=== PATIENT | male | born 2005 | race Caucasian/White ===

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

== ENCOUNTER 2023-12-11 12:20 | Emergency (ER) | payer SELFPAY ==
--- NOTE | 2023-12-11 12:27 | XR_ITS ---
PROCEDURE INFORMATION: Exam: XR Right Foot Exam date and time: 12/11/2023 12:28 PM Age: 18 years old Clinical indication: Injury or trauma; Fall; Swelling (edema); Ankle and foot; Right; Additional info: Injury at work, , swelling TECHNIQUE: Imaging protocol: Radiologic exam of the right foot. Views: 3 or more views. COMPARISON: No relevant prior studies available. FINDINGS: Bones/joints: No evidence of acute fracture or malalignment. Lisfranc joint appears normal. Soft tissues: Unremarkable. IMPRESSION: No evidence of acute osseous abnormality in the right foot.
--- NOTE | 2023-12-11 12:28 | XR_ITS ---
PROCEDURE INFORMATION: Exam: XR Right Ankle Exam date and time: 12/11/2023 12:30 PM Age: 18 years old Clinical indication: Injury or trauma; Fall; Work related; Swelling (edema); Ankle; Right; Additional info: Workers comp injury, , twisted ankle TECHNIQUE: Imaging protocol: Radiologic exam of the right ankle. Views: 3 or more views. COMPARISON: CR XR FOOT RT MIN 3V 12/11/2023 12:28 PM FINDINGS: Bones/joints: No evidence of acute fracture or malalignment. Ankle mortise appears intact. Soft tissues: Soft tissue edema noted. IMPRESSION: No evidence of acute osseous abnormality in the right ankle.
[2023-12-11 12:45] VITALS: BP 149/93; PULSE 86; RESP 18; TEMP 37.4; O2SAT 99; BMI 27.0
--- NOTE | 2023-12-11 13:16 | EXP.UTC ---
Discharge Plan Disposition Patient Disposition: Home, Self-Care Condition: Good Referrals Follow up/Referrals: Daniel Plunkett DO [Staff Physician] - See instructions Lynn Chung APRN [Primary Care Provider] - See instructions Roxie Krueger DPM [Staff Physician] - See instructions Activity Restrictions/Add. Instructions Additional Instructions/Restrictions: *weight bearing as tolerated *RICE, Rest the extremity, Ice 15-20 minutes 3-4 times daily, Compress- wear the spencer wrap as discussed as much as possible to help reduce swelling and pain, Elevate the extremity when at rest *Spencer wrap is for support and help control swelling, use it except in the shower. Be sure that is not to tight but not to loose either *Elevate when resting? *Ibuprofen 600-800mg every 6-8 hours as needed for pain an inflammation. If need something more can take Tylenol in between doses of Ibuprofen to help Immediately follow up with your family doctor for new or worsening of symptoms, or no noticeable improvement over the next 3-5 days Follow up with Orthopedics or Podiatry if no improvement or any worsening of symptoms Clinical Impressions Clinical Impression: Ankle sprain Qualifiers: Encounter type: initial encounter Involved ligament of ankle: unspecified ligament Laterality: right Qualified Code(s): S93.401A - Sprain of unspecified ligament of right ankle, initial encounter Instructions Patient Instructions: How to Use Crutches, How To Perform RICE (Rest, Ice, Compress, Elevate), How to Use a Walking Boot Print Language Print Language: Chadian Discharge ED Provider: Lizette Hyatt [facility] General Stated complaint: WC-12/11/23 0815- Pain in R ankle Mode of Arrival: Ambulatory Source of Information: Patient Limitations: No Limitations Time Seen by Provider: 12/11/23 13:16 Description of Symptoms (Recalled from Triage Doc. by RN): PATIENT C/O INJURY TO RIGHT ANKLE AFTER STEPPING OFF OF A LADDER AND TWISTING IT TODAY HEENT Symptoms (Recalled from RN notes): No Resp Symptoms (Recalled from RN notes): No Skin Symptoms (Recalled from RN notes): No MS Symptoms (Recalled from RN notes): Yes Functional Status (Recalled from RN notes): WNL History of Present Illness Provider Complaint: Patient states that he was at work and was stepping off ladder when he twisted his right ankle and foot States since twisting the ankle/foot he has been having pain so they brought him in to get him checked Denies any other injury Related Data Allergies Allergy/AdvReac Type Severity Reaction Status Date / Time No Known Allergies Allergy Verified 12/11/23 13:12 Worker's Comp Is this a Worker's Comp case?: No [facility] Disclaimer: The information contained in this section may have been updated after the patient was seen, as this information can be updated by other users. Surgical History (Updated 12/11/23 @ 13:12 by Nvein Henry RN) History of tonsillectomy Social History Smoking Status: Unknown if ever smoked alcohol intake: never current occupational status: unemployed Travel in the last 8 weeks: None ROS Obtained: Yes All systems reviewed & no additional complaints except as documented and Yes Systems reviewed as appropriate & no additional complaints except as documented Constitutional Constitutional: Reports system reviewed and no additional complaints, except as documented and Reports as per HPI Cardiovascular Cardiovascular: Reports system reviewed and no additional complaints, except as documented and Reports as per HPI Respiratory Respiratory: Reports system reviewed and no additional complaints, except as documented and Reports as per HPI Gastrointestinal Gastrointestingal: Reports system reviewed and no additional complaints, except as documented and as per HPI Musculoskeletal Musculoskeletal: Reports system reviewed and no additional complaints, except as documented, Reports as per HPI and Reports other (pain, swelling tenderness right ankle and foot) Physical Exam General General appearance: alert and in no apparent distress ENT ENT exam: Present mucous membranes moist Respiratory Respiratory exam: Present normal lung sounds bilaterally; Absent respiratory distress or wheezes Cardiovascular Cardiovascular exam: Present regular rate, normal rhythm and normal heart sounds Abdominal Exam Abdominal exam: Present soft and normal bowel sounds; Absent distention or tenderness Expanded Lower Extremity Exam Right: Ankle exam: Present tenderness, swelling and ecchymosis Ankle image: 1. swelling noted with mild bruising, pain with palpation and + Pedal pulse noted Foot/toe exam: Present tenderness and swelling Neurovascular/Tendon exam: Present normal capillary refill Gait: observed and limited by pain Neurological Exam Neurological exam: Present alert, oriented X3 and normal gait Medical Decision Making Medical Records Screening: Per USPSTF and CDC recommendations, given the prevalence of disease in our region, it is our hospital?s policy to screen for HIV and viral Hepatitis for all patients aged 18 and over and those with ongoing risk factors. Thom Inquiry Pt receiving controlled substance: No Thom was queried for this patient: No Vital Signs: 12/11/23 12:45 Temperature 99.4 F Temperature Source Oral Pulse Rate [Left Brachial] 86 Respiratory Rate 18 Blood Pressure [Left Arm] 149/93 H Blood Pressure Mean [Left Arm] 111 Blood Pressure Source [Left Arm] Automatic Cuff Blood Pressure Position [Left Arm] Sitting 02 Sat by Pulse Oximetry 99 Oxygen Delivery Method Room Air Orders (Tests/Meds): ORDERS Category Date Time Status XR ankle RT min 3V Stat Exams 12/11/23 12:28 Taken XR foot RT min 3V Stat Exams 12/11/23 12:27 Taken Radiology Data #1: Image(s): Ankle Image Reviewed: Yes I have reviewed radiologist's interpretation FINDINGS: Bones/joints: No evidence of acute fracture or malalignment. Ankle mortise appears intact. Soft tissues: Soft tissue edema noted. IMPRESSION: No evidence of acute osseous abnormality in the right ankle. #2: Image(s): Foot/Toes Image Reviewed: Yes I have reviewed radiologist's interpretation FINDINGS: Bones/joints: No evidence of acute fracture or malalignment. Lisfranc joint appears normal. Soft tissues: Unremarkable. IMPRESSION: No evidence of acute osseous abnormality in the right foot. Procedures Orthopedic Splinting/Casting Injury #1: Side: right Lower Extremity Injury Location: ankle and foot Lower Extremity Immobilizer: boot orthosis Other Orthopedic Equipment: crutches Post Cast/Splinting Neuro Status: intact and no change Post Cast/Splinting Vasc Status: intact and no change
[2023-12-11 13:55] VITALS: BP 149/93; PULSE 86; RESP 18; TEMP 37.4; O2SAT 99
== END 2023-12-11 13:57 | disposition home or self-care (01) ==
PROVIDERS: Emergency Provider Nurse Practitioner; PCP Nurse Practitioner
DX: S93.401A Sprain of unspecified ligament of right ankle, initial encounter (principal); X50.0XXA Overexertion from strenuous movement or load, initial encounter
CPT/HCPCS: 73610; 73630; 99213; G0381